=== PATIENT | male | born 1975 | race Caucasian/White ===

== ENCOUNTER 2019-10-21 20:36 | Emergency (ER) | payer SELFPAY ==
[~2019-10-21] VITALS: Ht 177.8 cm; Wt 95.5 kg
[2019-10-21 20:44] VITALS: TEMP 97.4
[2019-10-21] MEDS ORDERED: PRINIVIL20 MG PO (20:54)
[2019-10-21 21:16] VITALS: BP 162/91; PULSE 91
== END 2019-10-21 21:15 | disposition home or self-care (01) ==
LOC: COL.ER 20:36
DX: T15.01XA Foreign body in cornea, right eye, initial encounter (principal); I10 Essential (primary) hypertension; W29.0XXA Contact with powered kitchen appliance, initial encounter; Y92.009 Unspecified place in unspecified non-institutional (private) residence as the place of occurrence of the external cause